=== PATIENT | male | born 1955 | race Caucasian/White ===

== ENCOUNTER 2018-07-27 20:22 | Emergency (ER) | payer SELFPAY ==
--- NOTE | 2018-07-27 20:38 | Emergency Department Record ---
History of Present Illness - General Chief Complaint: Altered Mental Status Stated Complaint: ALTERED LOC Time Seen by Provider: 07/27/18 20:24 Source: Patient Mode of Arrival: Wheelchair Limitations: No limitations - History of Present Illness Initial Comments: 62 yo male presents to ED for evaluation of confusion intermittently for 1 week. Patient was brought to ED for evaluation by his ex-. Patient reports neck pain symptoms x 1 month, recently saw his chiropractor for manipulation, was started on Prednisone as well for "arthritis" of the neck. Patient denies drug use or alcohol, denies history of IVDA. Patient denies trauma or recent injury to the head or neck. Patient does not take anticoagulation medications at his baseline. Patient does report smoking history, denies health problems at his baseline. MD Complaint: Confusion Onset/Timin -: Month(s) Severity: Mild Consistency: Intermittent, Now resolved Context: Other Associated Symptoms: Headaches, Syncope - [place] Coma Scale Eye Response: (4) Open spontaneously Motor Response: (6) Obeys commands Verbal Response: (5) Oriented Jennifer Total: 15 - Related Data Previous Rx's Medication Instructions Recorded Hydrocodone/Acetaminophen [[place] 1 - 2 tab PO Q6H PRN #20 tab 03/01/14 5-325 Tablet] Indomethacin [Indocin] 25 mg PO TID #21 capsule 03/01/14 Prednisone 50 mg PO DAILY #5 tablet 03/01/14 Allergies Allergy/AdvReac Type Severity Reaction Status Date / Time No Known Drug Allergies Allergy Verified 03/01/14 05:07 Travel Screening - Travel/Exposure Within Last 30 Days Have you traveled within the last 30 days?: No - Travel Symptoms Symptom Screening: Headache Review of Systems Constitutional: Denies: Chills, Fever, Malaise, Night sweats Eyes: Denies: Eye discharge, Eye pain ENT: Denies: Congestion, Ear pain, Epistaxis Respiratory: Denies: Cough, Dyspnea Cardiovascular: Denies: Chest pain, Dyspnea on exertion Endocrine: Denies: Fatigue, Heat or cold intolerance Gastrointestinal: Denies: Abdominal pain, Nausea, Vomiting Genitourinary: Denies: Incontinence, Retention Musculoskeletal: Reports: Neck pain. Denies: Arthralgia, Back pain Skin: Denies: Bruising, Change in color Neurological: Reports: Confusion. Denies: Abnormal gait, Headache, Seizure Psychiatric: Denies: Anxiety Hematological/Lymphatic: Denies: Anemia, Blood Clots Past Medical History - SOCIAL HISTORY Smoking Status: Current every day smoker - RESPIRATORY Hx Respiratory Disorders: No - CARDIOVASCULAR Hx Cardio Disorders: No - NEURO Hx Neuro Disorders: No - GI Hx GI Disorders: No - Hx Genitourinary Disorders: No - ENDOCRINE Hx Endocrine Disorders: No - MUSCULOSKELETAL Hx Musculoskeletal Disorders: No - PSYCH Hx Psych Problems: No - HEMATOLOGY/ONCOLOGY Hx Hematology/Oncology Disorders: No Physical Exam - General General Appearance: Alert, Oriented x3, Cooperative, Mild distress Limitations: No limitations - Head Head exam: Atraumatic, Normocephalic, Normal inspection Head exam detail: negative: Abrasion, Contusion, Catalan's sign, General tenderness, Hematoma, Laceration - Eye Eye exam: Normal appearance. negative: Conjunctival injection, Periorbital swelling, Periorbital tenderness, Scleral icterus - ENT Ear exam: negative: Auricular hematoma, Auricular trauma Nasal Exam: negative: Active bleeding, Discharge, Dried blood, Foreign body Mouth exam: negative: Drooling, Laceration, Muffled voice, Tongue elevation - Neck Neck exam: Tenderness, Other (Diffuse TTP to the neck on examination with palpation bilaterally.) - Respiratory Respiratory exam: Normal lung sounds bilaterally. negative: Rales, Respiratory distress, Rhonchi, Stridor - Cardiovascular Cardiovascular Exam: Regular rate, Normal rhythm, Normal heart sounds - GI/Abdominal GI/Abdominal exam: Soft. negative: Rebound, Rigid, Tenderness - Rectal Rectal exam: Deferred - exam: Deferred - Extremities Extremities exam: Normal inspection. negative: Pedal edema, Tenderness - Back Back exam: Reports: CVA tenderness (R), CVA tenderness (L) - Neurological Neurological exam: Alert, Normal gait, Oriented X3 - Psychiatric Psychiatric exam: Normal affect, Normal mood - Skin Skin exam: Normal color. negative: Abrasion Type of lesion: negative: abrasion Course Vital Signs 07/27/18 20:24 Pulse Rate 98 H Respiratory 16 Rate Blood Pressure 159/103 Pulse Ox 99 - Reevaluation(s) Reevaluation #1: 07/27/18 20:35 Patient was seen and examined. No focal deficits are present on examination, currently AO x3. Patient appeared confused on arrival per staff members. Track vargas noted to the upper extremities bilaterally as well. No clinical concern for CVA is present on my examination. Will obtain CTA of the head and neck to exclude carotid dissection given recent neck pain and manipulative treatment. Reevaluation #2: 07/27/18 20:38 EKG: NSR 93 Normal axis, normal intervals Mild ST changes II, AVF (concave), no reciprocal changes are present. Reevaluation #3: 07/27/18 21:16 Laboratory studies were reviewed and appear grossly unremarkable for an acute process except for the following: UDS positive for: Opiates Oxycodone Amphetamines Methamphetamines Cocaine Patient is going for CTA imaging of the head and neck at this time. Reevaluation #4: 07/27/18 22:29 CT Brain: No acute process CTA Brain: Minor athersclerotic disease bilaterally No significant stenosis present Patient reassessed, continue to fluctuate in mental status, however is again alert and oriented x 3 at this time. Recommended transfer for further evaluation, patient is requesting transfer to [facility] for further evaluation. Reevaluation #5: 07/27/18 22:37 Case was discussed with Dr. Lee ([facility]), will accept the patient for further evaluation. Recommended transfer by EMS, patient is refusing as he does not have health insurance. Patient is currently AO x 3, at this time can make his own decisions. Patient's daughter will drive the patient directly to [facility] for evaluation. Risks of , permanent impairment, or worsening of their current condition were discussed as well as the benefit of transfer via EMS to [facility] for their presenting symptoms. Patient verbalizes understanding of all risks and benefits, desires to leave AMA with his daughter driving despite these risks. Based on my examination, the patient is alert, oriented, and answers all questions appropriately at this time. Patient appears to have the capacity to make rational decisions based on my examination. (Patients daughter was present for the duration of our discussion as well and will drive the patient directly to [facility]. Medical Decision Making - Lab Data Result diagrams: 07/27/18 20:32 07/27/18 20:32 Disposition Disposition: Transfer Clinical Impression: Altered level of consciousness, Polysubstance (excluding opioids) dependence w/o physiol dependence Disposition: Acute Care Hospital Transfer Transfer To: [facility] Reason For Transfer: Altered LOC, neurology consultation. Accepting Physician: Jesus Time Discussed w/Accepting Physician: 22:32 Condition: (2) Stable Forms: Patient Portal Access Time of Disposition: 22:39 Quality - Quality Measures Quality Measures: N/A - Blood Pressure Screening Does Patient Have Any of the Following: No Blood Pressure Classification: Hypertensive Reading Systolic Measurement: 159 Diastolic Measurement: 103 Screening for High Blood Pressure: < First Hypertensive BP, F/U Documented > [G8950] First Hypertensive Follow-up Interventions: Referral to alternative/primary care provider.
[2018-07-27 20:48] LABS: ABSOLUTE NEUTROPHIL COUNT 7.51; BASO % 0.1 % (0-6); EOS % 0.1 % (0-6); GRAN % 77.6 % (47-80); HEMATOCRIT 45.8 % (42.0-52.0); LYMPH % 13.8 % (16-45); MEAN CELL VOLUME 95.2 fl (81-97); MEAN CORPUSCULAR HEMOGLOBIN 31.2 pg (27-33); MEAN CORPUSCULAR HGB CONC 32.8 g/dl (32-36); MEAN PLATELET VOLUME 8.9 fl (7.4-10.4); MONO % 8.4 % (0-9); PLATELET COUNT 417 K/uL (130-400); RED BLOOD COUNT 4.81 M/uL (4.40-5.70); RED CELL DISTRIBUTION WIDTH 14.3 % (11.5-14.5); WHITE BLOOD COUNT W/O DIFF 9.7 K/uL (4.2-12.2)
[2018-07-27 20:59] LABS: PROTHROMBIN TIME (PATIENT) 9.9 SECONDS (9.5-12.1)
[2018-07-27 21:05] LABS: ALB/GLOB RATIO 1.5 (1.1-1.8); ALBUMIN 4.4 g/dL (4.0-5.0); ALKALINE PHOSPHATASE 105 U/L (40-129); ALT/SGPT 21 U/L (<41); AST/SGOT 13 U/L (10.0-50.0); BLOOD UREA NITROGEN 16 mg/dL (8-23); CREATININE 0.6 mg/dL (0.7-1.2); EST GLOMERULAR FILTRATION RATE > 60 mL/min; GLUCOSE,RANDOM 113 mg/dL (74-109); TOTAL PROTEIN 7.4 g/dL (6.6-8.7)
[2018-07-27 21:06] LABS: AMMONIA 29 umol/L (16.0-60.0)
[2018-07-27 21:14] LABS: AMPHETAMINE SCREEN URINE DETECTED; BARBITURATE SCREEN URINE NOT DETECTED; BENZODIAZEPINE SCREEN URINE NOT DETECTED; METHADONE SCREEN URINE NOT DETECTED; OPIATE SCREEN URINE DETECTED; THC SCREEN URINE NOT DETECTED; TRICYCLIC ANTIDEPRESSANT SCRN NOT DETECTED
[2018-07-27 21:15] LABS: THYROID STIMULATING HORMONE 0.68 uIU/mL (0.270-4.20)
[2018-07-27 21:15] LABS: COCAINE SCREEN URINE DETECTED; METHAMPHETAMINE SCREEN DETECTED; OXYCODONE SCREEN URINE DETECTED; PHENCYCLIDINE SCREEN URINE NOT DETECTED; PROPOXYPHENE SCREEN URINE NOT DETECTED
[2018-07-27 22:55] LABS: ACETAMINOPHEN 6.2 ug/mL (10.0-30.0)
[2018-07-27 22:57] LABS: SALICYLATE < 0.3 mg/dL (2.8-20)
--- NOTE | 2018-07-29 06:11 | CT SCAN REPORT ---
EXAM: CT SCAN HEAD WO CONTRAST HISTORY: NECK PAIN AND CONFUSION. TECHNIQUE: Standard CT imaging of the brain was performed in the axial plane without contrast. COMPARISON: None. FINDINGS: The brain volume is normal. There is no mass, mass-effect, intracranial hemorrhage, visible acute infarct, or abnormal extra-axial fluid. The skull is intact. The orbits, sinuses, and mastoids are normal. IMPRESSION: NEGATIVE NONCONTRAST CT SCAN OF THE BRAIN. JOB NUMBER: [id number] MTDD
--- NOTE | 2018-07-29 07:42 | CT ANGIOGRAM REPORT ---
EXAM: CT ANGIOGRAM OF THE HEAD AND NECK WITH CONTRAST HISTORY: NECK PAIN AND CONFUSION. TECHNIQUE: Standard CT angiography of the neck and brain was performed with post processing following the bolus administration of 100 ml of Omnipaque 350. Comparison: Head CT from the same date. [facility] DOCUMENTATION: All internal carotid artery percent stenoses are calculated using the distal internal carotid artery diameter as the denominator (NASCET criteria). FINDINGS: The aortic arch and origin of the arch vessels is not included on this examination. The origins of the common carotid arteries and vertebral arteries are not included. The remaining portions of the common carotid arteries are normal in caliber. There is minor atherosclerotic calcification at the carotid bulbs and proximal internal carotid arteries with no stenosis. The cervical internal carotid arteries are normal in caliber and mildly tortuous. The vertebral arteries are codominant. There is no vertebral stenosis or dissection. 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 The intracranial internal carotid arteries appear normal in caliber. The anterior and middle cerebral arteries are also normal in appearance. The vertebrobasilar system and its branch vessels including both posterior cerebral arteries are normal. There is no evidence for intracranial vascular occlusion. There is no aneurysm or arteriovenous malformation. The visualized brain parenchyma appears normal. The neck soft tissues are unremarkable. IMPRESSION: 1. THE AORTIC ARCH AND ORIGIN OF THE ARCH VESSELS IS NOT INCLUDED ON THIS EXAMINATION. 2. MINOR ATHEROSCLEROTIC CALCIFICATIONS WITHIN THE CAROTID BULBS AND PROXIMAL INTERNAL CAROTID ARTERIES WITH NO STENOSIS. 3. OTHERWISE UNREMARKABLE CTA OF THE NECK AND BRAIN. JOB NUMBER: [id number] MTDD
== END 2018-07-27 23:10 | disposition short-term general hospital (02) ==
LOC: ER 20:22
DX: F19.288 Other psychoactive substance dependence with other psychoactive substance-induced disorder (principal); R40.4 Transient alteration of awareness
CPT/HCPCS: 70450; 70496; 70498; 80053; 80305; 80320; 80329; 82140; 84443; 84484; 85025; 85610; 93005; 93010; 99285